=== PATIENT | male | born 1990 | race Caucasian/White ===

== ENCOUNTER 2023-06-10 00:16 | Emergency (ER) | payer SELFPAY ==
[2023-06-10 00:23] VITALS: BP 136/99; PULSE 96; RESP 16; TEMP 36.5; O2SAT 98; BMI 28.1
--- NOTE | 2023-06-10 00:30 | XR_ITS ---
The [address] [address] Patient Name: ADA AMARO MRN: [id number] date: 1990 Sex: M Assigned Patient Location: ER Current Patient Location: ER Accession/Order Number: [id number] Exam Date: 06/10/2023 00:40 Report Date: 06/10/2023 00:55 At the request of: EDGARD VIDES Procedure: XR hand LT min 3V EXAM: XR hand LT min 3V HISTORY: The patient is a 33-year-old male, crush injury COMPARISON: None. FINDINGS: The left hand is radiographically negative with no evidence of fracture, dislocation, joint space narrowing, osteophytes, or other osseous or articular abnormalities. XR/XR hand LT min 3V IMPRESSION: Negative. Electronically authenticated by: SAPNA LAZARO Date: 06/10/2023 00:55
--- NOTE | 2023-06-10 01:10 | ED.UPPEXIN1 ---
HPI - Extremity Injury (Upper) General Chief Complaint: Extremity Injury, Upper Stated Complaint: UE INJURY Time Seen by Provider: 06/10/23 00:44 Source: patient Mode of arrival: walk-in Limitations: no limitations History of Present Illness HPI narrative: moving furniture yesterday and injured his left thumb. Throbbing pain ever since . no weakness or numbness. No other injury Related Data Home Medications Medication Instructions Recorded Confirmed No Known Home Medications 06/10/23 06/10/23 Allergies Allergy/AdvReac Type Severity Reaction Status Date / Time No Known Drug Allergies Allergy Verified 06/10/23 00:29 Review of Systems ROS Status of ROS 10 or more systems reviewed and unremarkable except as noted in history and below [facility] Social History Smoking status: Current every day smoker Exam Constitutional Vital Signs, click to edit/add: Last Vital Signs Temp 97.7 F 06/10/23 00:23 Pulse 96 H 06/10/23 00:23 Resp 16 06/10/23 00:23 BP 136/99 H 06/10/23 00:23 Pulse Ox 98 06/10/23 00:23 O2 Del Method Room Air 06/10/23 00:23 Common normals: no apparent distress, average body habitus, oriented x3, no limitations, healthy appearing, alert and well nourished Eye Common normals: PERRL, EOMs intact bilaterally and conjunctivae normal Respiratory Common normals: normal respiratory effort, no retractions and no use of accessory muscles GI Common normals: Normal to inspection, nondistended, normoactive bowel sounds present Extremity Other: left thumb subungual hematoma. no deformity and mild swelling Neuro Common normals: oriented x3, CN's II-XII intact bilaterally, moves all extremities, no focal motor deficits and no sensory deficits noted Psych Appearance: grossly normal Course Vital Signs Vital signs: Vital Signs Temperature 97.7 F 06/10/23 00:23 Pulse Rate 96 H 06/10/23 00:23 Respiratory Rate 16 06/10/23 00:23 Blood Pressure 136/99 H 06/10/23 00:23 Pulse Oximetry 98 06/10/23 00:23 Oxygen Delivery Method Room Air 06/10/23 00:23 Temperature 97.7 F 06/10/23 00:23 Pulse Rate 96 H 06/10/23 00:23 Respiratory Rate 16 06/10/23 00:23 Blood Pressure 136/99 H 06/10/23 00:23 Pulse Oximetry 98 06/10/23 00:23 Oxygen Delivery Method Room Air 06/10/23 00:23 MDM - Extremity Injury (Upper) MDM Narrative Medical decision making narrative: presents after he jammed his thumb between a sofa and the door jam yesterday AM. Has subungual hematoma. xray neg for fracture. patient discharged home and advised to use NSAIDs for the pain Discharge Plan Discharge Chief Complaint: Extremity Injury, Upper Clinical Impression: Subungual hematoma of finger of left hand Patient Disposition: Home, Self-Care Prescriptions / Home Meds: No Action No Known Home Medications Instructions: Contusion in Adults (ED) Additional Instructions: follow up with the family doctor next week Stand Alone Forms: Portal Instructions Referrals: Physician,Non-Staff, MD [Primary Care Provider] - 1 week
[2023-06-10] MEDS: IBUPROFEN 400 MG TABLET 800 MG PO (01:38)
== END 2023-06-10 01:42 | disposition home or self-care (01) ==
PROVIDERS: Emergency Provider Internal Medicine
DX: S60.112A Contusion of left thumb with damage to nail, initial encounter (principal); W23.0XXA Caught, crushed, jammed, or pinched between moving objects, initial encounter; F17.210 Nicotine dependence, cigarettes, uncomplicated
CPT/HCPCS: 73130; 99283